=== PATIENT | male | born 1980 | race Caucasian/White ===

== ENCOUNTER 2022-07-08 11:49 | Emergency (ER) | payer BC, SELFPAY ==
[2022-07-08] VITALS (7 sets, daily range): BP systolic 129–157; BP diastolic 77–96; PULSE 83–108; RESP 20–25; TEMP 37.1; O2SAT 96–98; BMI 43.0
--- NOTE | 2022-07-08 11:40 | ECG_ITS ---
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
[2022-07-08 13:12] LABS: Basophils Percent Auto 0.2 % (0.2-2.0); Eosinophils Absolute Auto 0.1 10^3/uL (0.0-0.7); Hematocrit 40.9 % (42.0-54.0); Hemoglobin 13.5 g/dL (14.0-18.0); Immature Granulocytes Abs Auto 0.04 10^3/uL (0.00-0.03); Immature Granulocytes Pct Auto 0.5 % (0.0-0.5); Lymphocytes Absolute Auto 1.1 10^3/uL (1.2-3.8); Lymphocytes Percent Auto 12.9 % (20.5-60.0); Mean Corpuscular Hemoglobin 31.3 pg (25.9-34.0); Mean Corpuscular Volume 94.7 fL (80.0-94.0); Mean Platelet Volume 10.6 fL (9.5-13.5); Monocytes Absolute Auto 0.6 10^3/uL (0.3-0.8); Monocytes Percent Auto 7.6 % (1.7-12.0); Neutrophils Absolute Auto 6.4 10^3/uL (1.4-6.5); Neutrophils Percent Auto 77.8 % (43.0-75.0); Platelet Count 212 10^3/uL (150-450); Red Blood Count 4.32 10^6/uL (4.70-6.10); Red Cell Distribution Width 13.1 % (11.0-15.0); White Blood Count 8.3 10^3/uL (4.0-11.0)
[2022-07-08] MEDS: KETOROLAC TROMETHAMINE 30 MG/ML VIAL IVP (13:30)
[2022-07-08 13:35] LABS: Alanine Aminotransferase 35 U/L (16-63); Albumin Level 3.9 g/dL (3.4-5.0); Alkaline Phosphatase 73 U/L (46-116); Anion Gap 11.3; Aspartate Amino Transferase 18 U/L (15-37); BUN Creatinine Ratio 13.3; Bilirubin Total 0.5 mg/dL (0.2-1.0); Calcium 9.2 mg/dL (8.5-10.1); Carbon Dioxide 27.3 mmol/L (21.0-32.0); Chloride 100 mmol/L (98-107); Estimated GFR (African America >60 (>=60); Estimated GFR (Non-African Ame >60 (>=60); Globulin 4.1 g/dL; Glucose 100 mg/dL (74-106); Potassium 3.6 mmol/L (3.5-5.1); Sodium 135 mmol/L (136-145); Troponin I High Sensitivity <4.0 pg/mL (4.0-76.1)
--- NOTE | 2022-07-08 13:55 | ED_ITS ---
HPI - General Adult General Chief complaint: Abdominal Pain Stated complaint: BACK PAIN Time Seen by Provider: 07/08/22 13:55 Source: patient Mode of arrival: walk-in Limitations: no limitations History of Present Illness HPI narrative: pt she presents emergency department complaining of left flank pain. Patient states he's been having pain to his left upper quadrant and left upper back. Started 3-4 days ago. He denies any trauma. He had a rash and was treated for shingles of his upper back one month ago. He finished taking prednisone and gabapentin. He denies any chest pain, or shortness of breath. He denies any fever, chills, or cough. He denies any recent upper respiratory infection symptoms. He denies any nausea, vomiting, the area, constipation, or abdominal pain. denies any hematuria, dysuria. Denies any paresthesias, weakness. Related Data Home Medications Medication Instructions Recorded Confirmed lisinopril 10 mg tablet 10 mg PO DAILY 07/08/22 07/08/22 Previous Rx's Medication Instructions Recorded acyclovir 800 mg tablet 800 mg PO Q4H #35 tabs 07/08/22 prednisone 50 mg tablet 50 mg PO DAILY 5 days #5 tabs 07/08/22 Allergies Allergy/AdvReac Type Severity Reaction Status Date / Time Penicillins Allergy Severe Hives Verified 07/08/22 11:58 Review of Systems ROS Status of ROS 10 or more systems reviewed and unremarkable except as noted in history and below [facility] Social History Smoking status: Never smoker Exam Narrative Exam Narrative: Nurses notes and vital signs reviewed and patient is not hypoxic. General: Nontoxic, Well-appearing and in no apparent distress. Skin: Warm, dry, no pallor noted.Multiple vesicular rash to the left posterior rib and left chest. Patient is also cause some excoriation from scratching. There is no signs of bacterial infection. Consistent with shingles. Head: Normocephalic, atraumatic. Neck: Supple, non-tender. Eye: Pupils are equal, round and EOMI. No scleral icterus. Ears, Nose, Mouth, and Throat: TM clear, no posterior oropharynx erythema or nasal mucosal hypertrophy, uvula is mid-line Oral mucosa is moist Cardiovascular: Regular Rate and Rhythm without murmur, gallop or rub. Respiratory: No accessory muscle use or respiratory distress. Lungs are clear to auscultation, no wheezing, rales or rhonchi Chest Wall: no tenderness Back: No midline thoracic or lumbar vertebral tenderness. No CVA tenderness Musculoskeletal: normal ROM, no calf or popliteal tenderness, no lower extremity edema/swelling GI: Abdomen is soft, non-distended. Normal bowel sounds. No masses appreciated. No tenderness to palpation. No rebound, guarding, or rigidity noted. Neurological: A&O x4. No cranial nerve dysfunction observed. No truncal ataxia. Moves all extremities. Sensation intact. Psychiatric: Cooperative and interactive. Normal mood and affect. Constitutional Vital Signs - 24 hr 07/08/22 11:58 07/08/22 12:54 Temperature 98.8 F Pulse Rate [Monitor] 108 H Respiratory Rate 20 Blood Pressure [Left Arm] 148/93 H Pulse Oximetry 98 98 Oxygen Delivery Method Room Air Room Air Course Course Hospital Course: Patient had blood work ordered. All results were discussed with patient. Patient does not have any chest pain,Shortness of breath. Abdomen is benign. Physical exam and history consistent with shingles. Patient is given a prescription for acyclovir and prednisone. He will take the gabapentin that he has at home bring to him by his primary care doctor. He is nontoxic, non-hypoxic, stable for outpatient follow-up and treatment. Patient was advised to get shingles vaccine. At this time the patient is without objective evidence of an acute process requiring hospitalization or inpatient management. The patient has remained hemodynamically stable. No additional indication for emergent studies at this time. I answered all questions. Discussed discharge instructions including standard anticipatory guidance and what should prompt a return to the emergency department, including if they get worse are not getting better or develops any new or concerning symptoms. I've given them specific time frame in which to follow-up, and who to follow-up with. The patient demonstrates understanding. Patient is nontoxic and stable for discharge with outpatient follow-up. This note was created with the assistance of a speech recognition program. Although the intention is to generate documents that actually reflects the content of the visit, no guarantees can be provided that every mistake has been identified and corrected by editing. Vital Signs Vital signs: Vital Signs Temperature 98.8 F 07/08/22 11:58 Pulse Rate 108 H 07/08/22 11:58 Respiratory Rate 20 07/08/22 11:58 Blood Pressure 148/93 H 07/08/22 11:58 Pulse Oximetry 98 07/08/22 11:58 Oxygen Delivery Method Room Air 07/08/22 11:58 Temperature 98.8 F 07/08/22 11:58 Pulse Rate 108 H 07/08/22 11:58 Respiratory Rate 20 07/08/22 11:58 Blood Pressure 148/93 H 07/08/22 11:58 Pulse Oximetry 98 07/08/22 12:54 Oxygen Delivery Method Room Air 07/08/22 12:54 Medical Decision Making Lab Data Labs: Lab Results 07/08/22 Range/Units 12:51 WBC 8.3 (4.0-11.0) 10^3/uL RBC 4.32 L (4.70-6.10) 10^6/uL Hgb 13.5 L (14.0-18.0) g/dL Hct 40.9 L (42.0-54.0) % MCV 94.7 H (80.0-94.0) fL MCH 31.3 (25.9-34.0) pg MCHC 33.0 (29.9-35.2) g/dL RDW 13.1 (11.0-15.0) % Plt Count 212 (150-450) 10^3/uL MPV 10.6 (9.5-13.5) fL Neut % (Auto) 77.8 H (43.0-75.0) % Lymph % (Auto) 12.9 L (20.5-60.0) % [place]pine % (Auto) 7.6 (1.7-12.0) % Eos % (Auto) 1.0 (0.9-7.0) % Baso % (Auto) 0.2 (0.2-2.0) % Neut # (Auto) 6.4 (1.4-6.5) 10^3/uL Lymph # (Auto) 1.1 L (1.2-3.8) 10^3/uL [place] # (Auto) 0.6 (0.3-0.8) 10^3/uL Eos # (Auto) 0.1 (0.0-0.7) 10^3/uL Baso # (Auto) 0.0 (0.0-0.1) 10^3/uL Sodium 135 L (136-145) mmol/L Potassium 3.6 (3.5-5.1) mmol/L Chloride 100 (98-107) mmol/L Carbon Dioxide 27.3 (21.0-32.0) mmol/L Anion Gap 11.3 BUN 12.0 (7.0-18.0) mg/dL Creatinine 0.90 (0.70-1.30) mg/dL Est GFR ( Amer) >60 (>=60) Est GFR (Non-Af Amer) >60 (>=60) BUN/Creatinine Ratio 13.3 Glucose 100 (74-106) mg/dL Calcium 9.2 (8.5-10.1) mg/dL Total Bilirubin 0.5 (0.2-1.0) mg/dL AST 18 (15-37) U/L ALT 35 (16-63) U/L Troponin I High Sens <4.0 L (4.0-76.1) pg/mL Total Protein 8.0 (6.4-8.2) g/dL Albumin 3.9 (3.4-5.0) g/dL Globulin 4.1 g/dL Albumin/Globulin Ratio 1.0 Lipase 61.0 L (73.0-393.0) U/L Discharge Plan Discharge Chief Complaint: Abdominal Pain Clinical Impression: [facility]ar Patient Disposition: Home, Self-Care Time of Disposition Decision: 13:56 Condition: Good Prescriptions / Home Meds: New prednisone 50 mg tablet 50 mg PO DAILY 5 Days Qty: 5 0RF acyclovir 800 mg tablet 800 mg PO Q4H Qty: 35 0RF Rx Instructions: while awake; give 5 doses in 24 hours No Action lisinopril 10 mg tablet 10 mg PO DAILY Instructions: César (ED) Stand Alone Forms: Portal Instructions Referrals: CRISTAL SALAS [Primary Care Provider] - 1 week
== END 2022-07-08 14:06 | disposition home or self-care (01) ==
PROVIDERS: Emergency Provider Emergency Medicine; PCP Family Medicine
DX: B02.9 Zoster without complications (principal); R10.12 Left upper quadrant pain
CPT/HCPCS: 36415; 80053; 83690; 84484; 84703; 85025; 93005; 96374; 99285